=== PATIENT | male | born 1955 | race Caucasian/White ===

== ENCOUNTER 2022-07-19 18:22 | Inpatient (IN) | payer OTHER ==
[2022-07-19 19:08] VITALS: BMI 33.5
[2022-07-19] MEDS ORDERED: BENZOCAINE/MENTHOL (CHLORASEPTIC ) LOZENGE MM PRN (20:17)
[2022-07-19] MEDS ORDERED: ACETAMINOPHEN 325 MG TABLET (FP) PO PRN (20:17)
[2022-07-19] MEDS ORDERED: IBUPROFEN 600 MG TABLET (FP) PO PRN (20:17)
[2022-07-19] MEDS ORDERED: NALOXONE HCL (KLOXXADO) 8 MG SPRAY NS PRN (20:17)
[2022-07-19] MEDS ORDERED: ONDANSETRON *ODT* 4 MG TABLET SL PRN (20:17)
[2022-07-19] MEDS ORDERED: POLYETHYLENE GLYCOL (HEALTHYLAX) 3350 17 GM PACKET PO PRN (20:17)
[2022-07-19] MEDS ORDERED: DICYCLOMINE HCL 10 MG CAPSULE PO PRN (20:17)
[2022-07-19] MEDS ORDERED: MAG HYDROX/AL HYDROX/SIMETH 30 ML UNIT-DOSE CUP PO PRN (20:17)
[2022-07-19] MEDS ORDERED: BISMUTH SUBSALICYLATE 524 MG/30 ML PO PRN (20:17)
[2022-07-19] MEDS ORDERED: MAGNESIUM HYDROX 2400MG/30ML ORAL SUSPENSION 30 ML CUP PO PRN (20:17)
[2022-07-19] MEDS ORDERED: NICOTINE POLACRILEX 2 MG GUM BUC PRN (20:17)
[2022-07-19] MEDS ORDERED: guaiFENesin 600 MG TABLET.ER (FP) PO PRN (20:17)
[2022-07-19] MEDS ORDERED: BENZONATATE 200 MG CAPSULE PO PRN (20:17)
[2022-07-19] MEDS ORDERED: LOPERAMIDE HCL 2 MG CAPSULE PO PRN (20:17)
[2022-07-19] MEDS ORDERED: NALOXONE HCL 0.4 MG/ML VIAL IM PRN (20:17)
[2022-07-19] MEDS ORDERED: IBUPROFEN 400 MG TABLET (FP) PO PRN (20:17)
[2022-07-19] MEDS ORDERED: TUBERCULIN PPD 5 TU/0.1ML VIAL ID ONE (22:49)
[2022-07-19] MEDS: MELATONIN 5 MG TABLETS PO SCH (22:54)
[2022-07-19] MEDS: THIAMINE HCL 100 MG TABLET (FP) PO SCH (22:54)
[2022-07-20] MEDS: hydrOXYzine PAMOATE 25 MG CAPSULE (FP) PO PRN (07:33)
[2022-07-20] MEDS ORDERED: LISINOPRIL 10 MG TABLET PO ONE (08:15)
[2022-07-20] MEDS: PRENATAL VITAMINS W/ FOLIC ACID TABLET (FP) PO SCH (09:11)
[2022-07-20] MEDS: NICOTINE 21 MG/24 HOURS TOPICAL PATCH TD SCH (09:12)
[2022-07-20] MEDS ORDERED: LORazepam 1 MG TABLET PO PRN (10:27)
[2022-07-20] MEDS ORDERED: LORazepam 1 MG TABLET PO ONE ×2 (11:12→13:30)
[2022-07-20 11:58] LABS: HEMATOCRIT 43.7 % (35.4-49); HEMOGLOBIN 15.3 GM/dL (11.7-16.9); MCH 33.6 pg (25.7-33.7); MEAN PLT VOLUME 8.6 fl (7.5-11.1); PLATELET COUNT 175 10^3/uL (134-434); RBC 4.56 M/mm3 (4.00-5.60); WHITE BLOOD COUNT 7.1 K/mm3 (4.0-10.0)
[2022-07-20 12:00] LABS: POTASSIUM 3.8 mmol/L (3.5-5.1)
[2022-07-20 12:09] LABS: ALBUMIN 3.5 g/dl (3.4-5.0); CALCIUM 8.6 mg/dL (8.5-10.1)
[2022-07-20 12:10] LABS: BLOOD UREA NITROGEN 9.5 mg/dL (7-18)
[2022-07-20 12:13] LABS: CREATININE 0.7 mg/dL (0.55-1.3)
[2022-07-20 12:14] LABS: BILIRUBIN,TOTAL 0.6 mg/dL (0.2-1); TOT PROT 6.5 g/dl (6.4-8.2)
[2022-07-20] MEDS: LORazepam 2 MG TABLET PO SCH ×2 (17:45→22:23)
[2022-07-20] MEDS: MELATONIN 5 MG TABLETS PO SCH (22:23)
[2022-07-20] MEDS: THIAMINE HCL 100 MG TABLET (FP) PO SCH (22:24)
[2022-07-21] MEDS: LORazepam 1 MG TABLET PO SCH ×4 (05:27→22:27)
[2022-07-21] MEDS: NICOTINE 21 MG/24 HOURS TOPICAL PATCH TD SCH (10:31)
[2022-07-21] MEDS: hydrOXYzine PAMOATE 25 MG CAPSULE (FP) PO PRN (10:31)
[2022-07-21] MEDS: PRENATAL VITAMINS W/ FOLIC ACID TABLET (FP) PO SCH (10:31)
[2022-07-21] MEDS ORDERED: amLODIPine BESYLATE 5 MG TABLET (FP) PO ONE (14:15)
[2022-07-21] MEDS: MELATONIN 5 MG TABLETS PO SCH (22:26)
[2022-07-21] MEDS: THIAMINE HCL 100 MG TABLET (FP) PO SCH (22:26)
[2022-07-21] MEDS: CARVEDILOL 12.5 MG TABLET (FP) PO SCH (23:12)
[2022-07-22] MEDS ORDERED: LORazepam 0.5 MG TABLET PO PRN
[2022-07-22] MEDS: LORazepam 0.5 MG TABLET PO SCH ×4 (05:37→22:21)
[2022-07-22] MEDS: amLODIPine BESYLATE 5 MG TABLET (FP) PO SCH (10:54)
[2022-07-22] MEDS: PRENATAL VITAMINS W/ FOLIC ACID TABLET (FP) PO SCH (10:54)
[2022-07-22] MEDS: NICOTINE 21 MG/24 HOURS TOPICAL PATCH TD SCH (10:56)
[2022-07-22] MEDS: CARVEDILOL 12.5 MG TABLET (FP) PO SCH ×2 (10:57→22:20)
[2022-07-22] MEDS: THIAMINE HCL 100 MG TABLET (FP) PO SCH (22:21)
[2022-07-22] MEDS: MELATONIN 5 MG TABLETS PO SCH (22:21)
[2022-07-23] MEDS ORDERED: LORazepam 0.5 MG TABLET PO ONE (05:00)
[2022-07-23 06:31] VITALS: RESP 18; TEMP 97.5
[2022-07-23 09:25] VITALS: BP 131/82; PULSE 79
[2022-07-23] MEDS: PRENATAL VITAMINS W/ FOLIC ACID TABLET (FP) PO SCH (10:39)
[2022-07-23] MEDS: NICOTINE 21 MG/24 HOURS TOPICAL PATCH TD SCH (10:40)
[2022-07-23] MEDS: CARVEDILOL 12.5 MG TABLET (FP) PO SCH (10:40)
[2022-07-23] MEDS: amLODIPine BESYLATE 5 MG TABLET (FP) PO SCH (10:40)
== END 2022-07-23 11:52 | disposition home or self-care (01) | DRG 897 ==
LOC: YASAS 18:22 → Y6N 20:37
PROVIDERS: ADMIT Allergy & Immunology; ATTEND Surgery
PROC: HZ2ZZZZ Detoxification Services for Substance Abuse Treatment (ICD-10-PCS; principal; 2022-07-19)
DX: F10.230 Alcohol dependence with withdrawal, uncomplicated (principal); F17.210 Nicotine dependence, cigarettes, uncomplicated; F10.282 Alcohol dependence with alcohol-induced sleep disorder; I10 Essential (primary) hypertension; M17.0 Bilateral primary osteoarthritis of knee; M54.50 Low back pain, unspecified; G89.29 Other chronic pain; Z91.148 Patient's other noncompliance with medication regimen for other reason
CPT/HCPCS: 36415; 80053; 85027; 86780; 87635; 87811